=== PATIENT | female | born 1980 | race Caucasian/White ===

== ENCOUNTER 2016-09-10 11:41 | Emergency (ER) | payer MEDICAID ==
[2016-09-10 11:46] VITALS: O2SAT 96
[2016-09-10] MEDS ORDERED: METOCLOPRAMIDE 10 MG/2 ML VIAL IVP ONE (12:33)
[2016-09-10] MEDS ORDERED: DEXAMETHASONE 10 MG/ML VIAL IVP ONE (12:33)
[2016-09-10] MEDS ORDERED: ONDANSETRON 4 MG/2 ML VIAL IVP ONE (12:33)
[2016-09-10] MEDS ORDERED: NS 1,000 ML IV ONE (12:33)
[2016-09-10 12:39] LABS: % IMMATURE GRANULYOCYTES 0.3 % (0.0-1.1); ABSOLUTE IMMATURE GRANULOCYTES 0.02 10^3/uL (0.00-0.10); ADD DIFF? NO; ADD MORPH? NO; ADD SCAN? NO; ATYPICAL LYMPHOCYTE FLAG 10 (0-99); FRAGMENT RBC FLAG 0 (0-99); HEMOGLOBIN 13.5 g/dL (12.6-16.3); LEFT SHIFT FLG 0 (0-99); LIPEMIA HEMOLYSIS FLAG 90 (0-99); MEAN CELL HEMOGLOBIN CONCENTR. 35.5 g/dL (32.4-36.7); MEAN CELL VOLUME 81.5 fL (81.5-99.8); MEAN PLATELET VOLUME 9.4 fL (8.7-11.7); PLATELET CLUMPS FLAG 10 (0-99); PLATELET COUNT 346 10^3/uL (150-400); RED BLOOD CELL COUNT 4.66 10^6/uL (4.18-5.33); RED CELL DISTRIBUTION WIDTH 13.6 % (11.5-15.2)
[2016-09-10 12:47] LABS: ANION GAP 11 mEq/L (8-16); CALCIUM 9.6 mg/dL (8.5-10.4); CARBON DIOXIDE 20 mEq/l (22-31); CHLORIDE 107 mEq/L (97-110); CREATININE 0.8 mg/dL (0.6-1.0); GLOMERULAR FILTRATION RATE > 60; GLUCOSE 95 mg/dL (70-100); POTASSIUM 4.1 mEq/L (3.5-5.2); SODIUM 138 mEq/L (134-144)
--- NOTE | 2016-09-10 13:13 | EDPHY ---
H & P Stated Complaint: Migraine w/nausea. Has hx migraines HPI/ROS: CHIEF COMPLAINT: Headache, visual disturbance HISTORY OF PRESENT ILLNESS: Patient complains of migraine headache and blurred vision. This started within the past 2 hours while at work. This came on abruptly, as her migraines usually do. This is by hemispheric. Radiating up from the occiput up to the frontal regions. Severe 10/10 pain. This is associated with some blurred vision, which is new for her. She had no neck pain or stiffness. No fever or chills. No chest pain shortness of breath. No nausea or vomiting. She usually does have some nausea. She says, however this is "definitely a migraine." Takes Lamictal for bipolar disorder, and Topamax for her migraines. No other associated complaints or modifying factors. REVIEW OF SYSTEMS: Ten systems reviewed and are negative unless otherwise noted in the HPI PERTINENT MEDICAL HISTORY: Migraines, bipolar disorder, anxiety EXAMINATION General Appearance: Alert, no distress Head: normocephalic, atraumatic Eyes: Pupils equal and round, no conjunctival pallor or injection. EOMs intact. No nystagmus. Visual mcneill are intact with reported blurred vision centrally. ENT, Mouth: Mucous membranes moist. Airway widely patent. Neck: Normal inspection, supple, non-tender. Painless range of motion all planes. No rigidity or meningismus. Respiratory: Lungs are clear to auscultation. No wheezing, rhonchi or crackles. Cardiovascular: Regular rate and rhythm. No murmur pain Gastrointestinal: Abdomen is soft and nontender Back: non-tender, no bony abnormalities Neurological: GCS 15. A&O, nonfocal, strength is 5/5 in all 4 limbs. Skin: Warm and dry, no rash Extremities: Nontender, no pedal edema Psychiatric: Mood and affect normal DIFFERENTIAL DIAGNOSES: Including but not limited to migraine, hemiplegic headache, cephalgia, subdural hemorrhage, intracranial edema, meningitis MDM: 12:35 p.m. Headache the patient feels it is a migraine headache. The pain is slightly different from her previous migraines, but she is adamant this is a migraine. She reports blurred vision but no focal deficits on examination. Visual mcneill are intact by confrontation. Pupils are symmetrically reactive. Medications have been ordered. I do not feel she warrants CT scan at this time as she has no focal deficits. 1:20 p.m. Patient is not feeling any better at this time. I will add Toradol, morphine and obtain a CT scan as she has had no improvement with her medications. Laboratory studies are all within normal limits. 2:35 p.m. Notified by radiologist Dr. Hernandez at 2:[address] scan of the head is unremarkable. At this time her pain is now down to a 2/10. We are administering Toradol planning for discharge home. She is comfortable this plan. She remains neuro intact with no focal deficits. She is discharged home with Fioricet with codeine. She will be referred to a new neurologist as she needs to establish. She also has an established primary care physician she will call. Return to the ER precautions discussed and she is comfortable being discharged home. 2:55 p.m. She is feeling much better after the Toradol. She is discharged home stable condition with instructions as above. SUPERVISION: This patient was independently evaluated without direct examination by the attending physician. Case was discussed with attending physician. Case discussed with Dr. Flores Source: Patient - Personal History LMP (Females 10-55): 22-28 Days Ago Current Tetanus Diphtheria and Acellular Pertussis (TDAP): No - Medical/Surgical History Other PMH: migraines. anxiety. depression - Social History Smoking Status: Current every day smoker Constitutional: Initial Vital Signs Temperature (C) 97.7 F 09/10/16 11:41 Heart Rate 85 09/10/16 11:41 Respiratory Rate 18 09/10/16 11:41 Blood Pressure 112/72 09/10/16 11:41 O2 Sat (%) 96 09/10/16 11:41 O2 Delivery Mode Room Air Allergies/Adverse Reactions: hydromorphone [From Dilaudid] Allergy (Intermediate, Verified 09/10/16 11:47) auditory hallucinations lithium Allergy (Mild, Verified 09/10/16 11:48) palpitations Home Medications: Medication Instructions Recorded Codeine/Butalbit/Acetamin/Caff 1 each PO Q6 PRN #12 capsule 09/10/16 [Fioricet-Cod 97-57-008-40 Cap] Sulfacetamide 10% [Bleph-10 10%] 1 btl OP 09/10/16 Topiramate [Topamax] 25 mg PO 09/10/16 clonAZEPAM [Klonopin] 0.25 mg PO 09/10/16 lamoTRIgine [LamICTAL 100 MG (*)] 100 mg PO 09/10/16 Medical Decision Making - Diagnostics Imaging Results: Imaging Impressions Head CT 09/10/16 13:19 Impression: Normal. Results called and discussed with Jared Duke PA-C, at 09/10/2016 14:16. - Data Points Laboratory Results: Laboratory Results 09/10/16 12:20 09/10/16 12:20 09/10/16 09/10/16 09/10/16 12:20 12:20 12:20 WBC 7.64 10^3/uL 10^3/uL (3.80-9.50) RBC 4.66 10^6/uL 10^6/uL (4.18-5.33) Hgb 13.5 g/dL g/dL (12.6-16.3) Hct 38.0 % % (38.0-47.0) MCV 81.5 fL fL (81.5-99.8) MCH 29.0 pg pg (27.9-34.1) MCHC 35.5 g/dL g/dL (32.4-36.7) RDW 13.6 % % (11.5-15.2) Plt Count 346 10^3/uL 10^3/uL (150-400) MPV 9.4 fL fL (8.7-11.7) Neut % (Auto) 43.6 % % (39.3-74.2) Lymph % (Auto) 45.3 % H % (15.0-45.0) [place] % (Auto) 6.9 % % (4.5-13.0) Eos % (Auto) 3.4 % % (0.6-7.6) Baso % (Auto) 0.5 % % (0.3-1.7) Nucleat RBC Rel Count 0.0 % % (0.0-0.2) Absolute Neuts (auto) 3.33 10^3/uL 10^3/uL (1.70-6.50) Absolute Lymphs (auto) 3.46 10^3/uL H 10^3/uL (1.00-3.00) Absolute Monos (auto) 0.53 10^3/uL 10^3/uL (0.30-0.80) Absolute Eos (auto) 0.26 10^3/uL 10^3/uL (0.03-0.40) Absolute Basos (auto) 0.04 10^3/uL 10^3/uL (0.02-0.10) Absolute Nucleated RBC 0.00 10^3/uL 10^3/uL (0-0.01) Immature Gran % 0.3 % % (0.0-1.1) Immature Gran # 0.02 10^3/uL 10^3/uL (0.00-0.10) Sodium 138 mEq/L mEq/L (134-144) Potassium 4.1 mEq/L mEq/L (3.5-5.2) Chloride 107 mEq/L mEq/L (97-110) Carbon Dioxide 20 mEq/l L mEq/l (22-31) Anion Gap 11 mEq/L mEq/L (8-16) BUN 11 mg/dL mg/dL (7-23) Creatinine 0.8 mg/dL mg/dL (0.6-1.0) Estimated GFR > 60 Glucose 95 mg/dL mg/dL (70-100) Calcium 9.6 mg/dL mg/dL (8.5-10.4) Beta HCG, Qual NEGATIVE Medications Given: Discontinued Medications Dexamethasone (Decadron Injection) 10 mg IVP EDNOW ONE Stop: 09/10/16 12:34 Last Admin: 09/10/16 12:58 Dose: 10 mg Diphenhydramine HCl (Benadryl Injection) 50 mg IVP EDNOW ONE Stop: 09/10/16 12:34 Last Admin: 09/10/16 13:04 Dose: 50 mg Sodium Chloride (Ns) 1,000 mls @ 0 mls/hr IV ONCE ONE PRN Reason: Wide Open Stop: 09/10/16 12:34 Last Admin: 09/10/16 12:58 Dose: 1,000 mls Ketorolac Tromethamine (Toradol) 30 mg IVP EDNOW ONE Stop: 09/10/16 13:19 Last Admin: 09/10/16 14:26 Dose: 30 mg Metoclopramide HCl (Reglan Injection) 10 mg IVP EDNOW ONE Stop: 09/10/16 12:34 Last Admin: 09/10/16 13:04 Dose: 10 mg Morphine Sulfate (Morphine) 4 mg IVP EDNOW ONE Stop: 09/10/16 13:20 Last Admin: 09/10/16 14:25 Dose: 4 mg Ondansetron HCl (Zofran) 4 mg IVP EDNOW ONE Stop: 09/10/16 12:34 Last Admin: 09/10/16 12:58 Dose: 4 mg Departure - Departure Disposition: Home, Routine, Self-Care Clinical Impression: Blurred vision Migraine Qualifiers: Migraine type: other Status migrainosus presence: without status migrainosus Intractability: not intractable Qualified Code(s): G43.809 - Other migraine, not intractable, without status migrainosus Condition: Good Instructions: Migraine Headache (ED) Additional Instructions: Medications as discussed. Increase fluid intake. Follow up with primary care physician. Contact Neurology for follow-up. Return to the ER for worsening symptoms as discussed Referrals: GARTH ROWELL [Other] - As per Instructions Patrice Matthews DO [Doctor of Osteopathy] - As per Instructions Prescriptions: Codeine/Butalbit/Acetamin/Caff [Fioricet-Cod 32-06-132-40 Cap] 1 each PO Q6 PRN #12 capsule PRN Reason: Headache
[2016-09-10] MEDS ORDERED: KETOROLAC 30 MG/1 ML SDV IVP ONE (13:18)
[2016-09-10 15:13] VITALS: BP 104/71; PULSE 83; RESP 16; TEMP 97.5
== END 2016-09-10 15:30 | disposition home or self-care (01) ==
DX: G43.809 Other migraine, not intractable, without status migrainosus (principal); F17.200 Nicotine dependence, unspecified, uncomplicated
CPT/HCPCS: 96374; J1200; J1885; J2405; J2765